=== PATIENT | female | born 1945 | race Caucasian/White ===

== ENCOUNTER → 2018-07-10 | Outpatient (CLI) | payer OTHER ==
[~2018-07-10] MED LIST: ACET325T21 PO; ALBU18HF INH; ASPI-621 PO; ASPI325T17 PO; ATOR40TA78 PO; CEFD300C37 PO; FENO54TA17 PO; FLUT1DIS3 INH; FLUT1DIS5 IH; GABA600T2 PO; GLIP5TAB10 PO; HYDR-3237 PO; IPRA3AMP30 INH; ISOS30TA8 PO; LISI-167 PO; LISI5TAB7 PO; METF10002 PO; METO25TA35 PO; NAPR-856 PO; OMEP-110 PO; OXYC1TAB7 PO; REGADENOSON 0.4 MG/5 ML SYRINGE ONE; SERT50TA5 PO
== END | disposition home or self-care (01) ==
LOC: CFH 11:52
PROVIDERS: ATTEND Family Medicine
DX: I34.0 Nonrheumatic mitral (valve) insufficiency (principal); E78.5 Hyperlipidemia, unspecified; E11.9 Type 2 diabetes mellitus without complications; I63.9 Cerebral infarction, unspecified; Z87.891 Personal history of nicotine dependence
CPT/HCPCS: 78452; 93017; 93306; A9502; J2785

== ENCOUNTER 2018-10-01 10:59 | Emergency (ER) | payer OTHER ==
[~2018-10-01] VITALS: Ht 170.2 cm; Wt 97.5 kg
[~2018-10-01 10:59] MED LIST changes: -ASPI-621 PO; +ASPI81TA45 PO; -REGADENOSON 0.4 MG/5 ML SYRINGE ONE
[2018-10-01] MEDS ORDERED: ACETAMINOPHEN 500 MG TABLET PO ONE (12:00)
[2018-10-01] MEDS ORDERED: ALBUTEROL/IPRATROPIUM 2.5MG/0.5MG, 3 ML NPPB SCH (12:00)
[2018-10-01 12:13] LABS: BASOPHILS # (AUTO) 0.01 x10^3/uL (0-0.1); BASOPHILS % (AUTO) 0 % (0-1); EOSINOPHILS # (AUTO) 0.11 x10^3/uL (0-0.4); EOSINOPHILS % (AUTO) 1 % (1-7); LYMPHOCYTES # (AUTO) 1.03 x10^3/uL (1-3.4); LYMPHOCYTES % (AUTO) 10 % (22-44); MD NO; MEAN CORPUSCULAR HGB CONC 31.7 g/dL (32.4-35.8); MEAN CORPUSCULAR VOLUME 79.1 fL (80-100); MEAN PLATELET VOLUME 9.9 fL (7.4-10.4); MONOCYTES # (AUTO) 0.75 x10^3/uL (0.2-0.8); MONOCYTES % (AUTO) 7 % (2-9); NEUTROPHILS # (AUTO) 8.92 x10^3/uL (1.8-6.8); NEUTROPHILS % (AUTO) 82 % (42-75); PLATELET COUNT 236 x10^3/uL (130-400); RED BLOOD COUNT 5.11 x10^6/uL (3.82-5.3); RED CELL DISTRIBUTION WIDTH 15.3 % (9.6-15.2)
[2018-10-01 12:22] LABS: ANION GAP 7 mmol/L (5-15); CALCIUM 8.9 mg/dL (8.5-10.1); CHLORIDE 98 mmol/L (98-107); CREATININE 1.11 mg/dL (0.55-1.02)
[2018-10-01] MEDS ORDERED: ALBUTEROL/IPRATROPIUM 2.5MG/0.5MG, 3 ML ONE ×2 (12:24→12:44)
[2018-10-01 12:54] LABS: RAPID INFLUENZA A Negative (Negative); RAPID INFLUENZA B Negative (Negative)
[2018-10-01] MEDS ORDERED: ACETAMINOPHEN 500 MG TABLET ONE (13:19)
[2018-10-01] MEDS ORDERED: LISI-170 PO (13:26)
[2018-10-01] MEDS ORDERED: INSU200I4 SQ (13:26)
[2018-10-01 13:28] VITALS: BP 142/80
== END 2018-10-01 13:59 | disposition home or self-care (01) ==
LOC: ED 12:47
DX: J18.1 Lobar pneumonia, unspecified organism (principal); J44.1 Chronic obstructive pulmonary disease with (acute) exacerbation; I11.9 Hypertensive heart disease without heart failure; E11.9 Type 2 diabetes mellitus without complications; I25.10 Atherosclerotic heart disease of native coronary artery without angina pectoris; Z87.891 Personal history of nicotine dependence
CPT/HCPCS: 36415; 71045; 80048; 82040; 83605; 85025; 87400; 93005; 94640; 99284; J7620

== ENCOUNTER 2018-12-25 10:50 | Inpatient (IN) | payer OTHER ==
[~2018-12-25] VITALS: Ht 170.2 cm; Wt 95.6 kg
[~2018-12-25 10:50] MED LIST changes: -GABA600T2 PO; +GABA600T7 PO; +INSU200I4 SQ; +LISI-170 PO; +SERT50TA28 PO; -SERT50TA5 PO
[2018-12-25] MEDS ORDERED: ALBUTEROL/IPRATROPIUM 2.5MG/0.5MG, 3 ML ONE ×2 (11:23→14:06)
[2018-12-25] MEDS ORDERED: ASPIRIN 81 MG TABLET CHEW PO ONE (11:30)
[2018-12-25] MEDS ORDERED: AZITHROMYCIN 500 MG in SODIUM CHLORIDE 0.9% 250 ML IVPB ONE (11:30)
[2018-12-25] MEDS ORDERED: ALBUTEROL/IPRATROPIUM 2.5MG/0.5MG, 3 ML NPPB SCH (11:30)
[2018-12-25] MEDS ORDERED: ASPIRIN 81 MG TABLET CHEW ONE (11:33)
[2018-12-25 11:37] LABS: BASOPHILS # (AUTO) 0.17 x10^3/uL (0-0.1); BASOPHILS % (AUTO) 2 % (0-1); EOSINOPHILS # (AUTO) 0.47 x10^3/uL (0-0.4); EOSINOPHILS % (AUTO) 5 % (1-7); LYMPHOCYTES # (AUTO) 2.34 x10^3/uL (1-3.4); LYMPHOCYTES % (AUTO) 23 % (22-44); MD NO; MEAN CORPUSCULAR HEMOGLOBIN 25.7 pg (27.0-34.8); MEAN CORPUSCULAR HGB CONC 32.1 g/dL (32.4-35.8); MEAN CORPUSCULAR VOLUME 80.2 fL (80-100); MONOCYTES # (AUTO) 0.63 x10^3/uL (0.2-0.8); MONOCYTES % (AUTO) 6 % (2-9); NEUTROPHILS # (AUTO) 6.69 x10^3/uL (1.8-6.8); NEUTROPHILS % (AUTO) 65 % (42-75); PLATELET COUNT 270 x10^3/uL (130-400); RED BLOOD COUNT 4.31 x10^6/uL (3.82-5.3)
--- NOTE | 2018-12-25 11:39 | NUR ---
spoke with md regarding abx order with no culture order. advised to start abx and no cultures needed.
[2018-12-25 11:49] LABS: ALBUMIN 3.6 g/dL (3.4-5.0); ANION GAP 5 mmol/L (5-15); CALCIUM 9.4 mg/dL (8.5-10.1); CHLORIDE 105 mmol/L (98-107); CREATININE 1.01 mg/dL (0.55-1.02)
[2018-12-25 11:53] LABS: TROPONIN I < 0.015 ng/mL (0.000-0.045)
--- NOTE | 2018-12-25 13:58 | NUR ---
pt ambulated per dr order. pt ambulating with her home o2 set to setting 3. pt ambulated 30 feet and began to speak in 1-2 word sentences. md made aware. plan is to admit pt at this time. pt and family agree with plan of care.
[2018-12-25] MEDS ORDERED: CEFTRIAXONE PMX 1GM/50ML 50 ML IV ONE (14:00)
[2018-12-25] MEDS ORDERED: CEFTRIAXONE PMX 1GM/50ML 50 ML ONE (14:23)
--- NOTE | 2018-12-25 16:39 | NUR ---
PT UP TO BATHROOM ON HER O2 CONCENTRATION MACHINE. MACHINE SET AT 5
--- NOTE | 2018-12-25 16:43 | NUR ---
PT UP TO BATHROOM ON CONCENTRATION MACHINE WHICH IS SET A 5. UPON RETURNING TO ROOMPTS O2 SAT AT 69%
[2018-12-25] MEDS ORDERED: CEFTRIAXONE PMX 1GM/50ML 50 ML IV SCH (17:00)
[2018-12-25] MEDS ORDERED: ALBUTEROL SULFATE 2.5 MG/3 ML NPPB PRN (17:00)
[2018-12-25] MEDS ORDERED: GUAIFENESIN/DM 200-20MG, 10ML UDC PO PRN (17:00)
[2018-12-25] MEDS ORDERED: GABAPENTIN 300 MG CAPSULE ONE (17:40)
[2018-12-25] MEDS ORDERED: HEPARIN 5,000 UNITS/ML, 1ML ONE (17:40)
[2018-12-25] MEDS: HEPARIN 5,000 UNITS/ML, 1ML SQ SCH (17:45)
[2018-12-25] MEDS: GABAPENTIN 300 MG CAPSULE PO SCH ×3 (17:45→23:32)
[2018-12-25] MEDS ORDERED: FENO54TA17 PO (18:18)
[2018-12-25] MEDS: ALBUTEROL/IPRATROPIUM 2.5MG/0.5MG, 3 ML NPPB SCH ×2 (19:00→23:00)
[2018-12-25] MEDS: ALBUTEROL SULFATE 2.5 MG/3 ML HHN SCH (21:00)
[2018-12-25] MEDS ORDERED: PLEASE ENTER ALLERGIES MC SCH (21:00)
[2018-12-25 23:29] VITALS: BP 158/84
[2018-12-25] MEDS: INSULIN GLARGINE 100 UNITS/ML, PEN SQ-INSULIN SCH (23:31)
[2018-12-25] MEDS: metFORMIN 500 MG TABLET PO SCH (23:32)
[2018-12-25] MEDS: MONTELUKAST 10 MG TABLET PO SCH (23:32)
[2018-12-25] MEDS: DOXYCYCLINE 100MG CAP PO SCH (23:32)
[2018-12-25] MEDS: OMEPRAZOLE 20 MG CAPSULE.DR PO SCH (23:32)
[2018-12-25] MEDS: METOPROLOL TARTRATE 25 MG TABLET PO SCH (23:32)
[2018-12-25] MEDS: SODIUM CHLORIDE FLUSH 10ML SYR IVF SCH (23:35)
[2018-12-26] MEDS: HEPARIN 5,000 UNITS/ML, 1ML SQ SCH ×3 (01:04→17:10)
[2018-12-26 01:06] LABS: RAPID INFLUENZA A Negative (Negative); RAPID INFLUENZA B Negative (Negative)
[2018-12-26 01:33] VITALS: BP 160/84
[2018-12-26] MEDS: ALBUTEROL/IPRATROPIUM 2.5MG/0.5MG, 3 ML NPPB SCH ×5 (02:27→20:00)
[2018-12-26] MEDS: ALBUTEROL SULFATE 2.5 MG/3 ML HHN SCH (02:29)
[2018-12-26] MEDS: BUDESONIDE 0.5 MG/2 ML INHA HHN SCH ×2 (07:15→21:00)
[2018-12-26 07:24] LABS: BASOPHILS # (AUTO) 0.07 x10^3/uL (0-0.1); BASOPHILS % (AUTO) 1 % (0-1); EOSINOPHILS # (AUTO) 0.02 x10^3/uL (0-0.4); EOSINOPHILS % (AUTO) 0 % (1-7); LYMPHOCYTES # (AUTO) 2.09 x10^3/uL (1-3.4); LYMPHOCYTES % (AUTO) 20 % (22-44); MD NO; MEAN CORPUSCULAR HEMOGLOBIN 24.8 pg (27.0-34.8); MEAN CORPUSCULAR HGB CONC 31.2 g/dL (32.4-35.8); MEAN CORPUSCULAR VOLUME 79.5 fL (80-100); MEAN PLATELET VOLUME 9.3 fL (7.4-10.4); MONOCYTES # (AUTO) 0.59 x10^3/uL (0.2-0.8); MONOCYTES % (AUTO) 6 % (2-9); NEUTROPHILS # (AUTO) 7.48 x10^3/uL (1.8-6.8); NEUTROPHILS % (AUTO) 73 % (42-75); PLATELET COUNT 244 x10^3/uL (130-400); RED BLOOD COUNT 4.46 x10^6/uL (3.82-5.3); RED CELL DISTRIBUTION WIDTH 16.1 % (9.6-15.2)
[2018-12-26 07:35] LABS: CHLORIDE 105 mmol/L (98-107)
[2018-12-26 07:36] VITALS: BP 158/79
[2018-12-26 07:50] LABS: ANION GAP 6 mmol/L (5-15); CALCIUM 9.5 mg/dL (8.5-10.1); CREATININE 0.98 mg/dL (0.55-1.02); THYROID STIMULATING HORMONE 0.283 mIU/L (0.358-3.740)
[2018-12-26] MEDS ORDERED: GABAPENTIN 300 MG CAPSULE PO SCH (09:00)
[2018-12-26] MEDS: DOXYCYCLINE 100MG CAP PO SCH ×2 (09:05→20:33)
[2018-12-26] MEDS: LISINOPRIL 20 MG TABLET PO SCH (09:05)
[2018-12-26] MEDS: metFORMIN 500 MG TABLET PO SCH ×2 (09:05→20:33)
[2018-12-26] MEDS: SERTRALINE 50MG TABLET PO SCH (09:05)
[2018-12-26] MEDS: ISOSORBIDE MONONITRATE ER 30 MG TABLET PO SCH (09:06)
[2018-12-26] MEDS: FENOFIBRATE 54 MG TABLET PO SCH (09:06)
[2018-12-26] MEDS: OMEPRAZOLE 20 MG CAPSULE.DR PO SCH ×2 (09:06→20:33)
[2018-12-26] MEDS: METOPROLOL TARTRATE 25 MG TABLET PO SCH ×2 (09:06→20:33)
[2018-12-26] MEDS: GABAPENTIN 300 MG CAPSULE PO SCH ×3 (09:06→20:33)
[2018-12-26] MEDS: ASPIRIN 81 MG TABLET EC PO SCH (09:06)
[2018-12-26] MEDS: SODIUM CHLORIDE FLUSH 10ML SYR IVF SCH ×2 (09:07→20:32)
[2018-12-26] MEDS ORDERED: CEFTRIAXONE PMX 1GM/50ML 50 ML IV SCH (13:00)
[2018-12-26 14:10] VITALS: BP 152/74
[2018-12-26] MEDS: predniSONE 50MG TABLET PO SCH (14:48)
[2018-12-26 20:29] VITALS: BP 144/78
[2018-12-26] MEDS: INSULIN GLARGINE 100 UNITS/ML, PEN SQ-INSULIN SCH (20:32)
[2018-12-26] MEDS: MONTELUKAST 10 MG TABLET PO SCH (20:33)
[2018-12-27] MEDS: HEPARIN 5,000 UNITS/ML, 1ML SQ SCH ×2 (01:37→09:39)
[2018-12-27 02:58] VITALS: BP 179/89
[2018-12-27] MEDS: BUDESONIDE 0.5 MG/2 ML INHA HHN SCH (07:05)
[2018-12-27] MEDS: ALBUTEROL/IPRATROPIUM 2.5MG/0.5MG, 3 ML NPPB SCH ×2 (07:05→10:25)
[2018-12-27 08:00] VITALS: BP 165/89
[2018-12-27] MEDS: METOPROLOL TARTRATE 25 MG TABLET PO SCH (09:00)
[2018-12-27] MEDS: SODIUM CHLORIDE FLUSH 10ML SYR IVF SCH (09:00)
[2018-12-27] MEDS: ASPIRIN 81 MG TABLET EC PO SCH (09:39)
[2018-12-27] MEDS: metFORMIN 500 MG TABLET PO SCH (09:39)
[2018-12-27] MEDS: predniSONE 50MG TABLET PO SCH (09:39)
[2018-12-27] MEDS: DOXYCYCLINE 100MG CAP PO SCH (09:39)
[2018-12-27] MEDS: FENOFIBRATE 54 MG TABLET PO SCH (09:39)
[2018-12-27] MEDS: OMEPRAZOLE 20 MG CAPSULE.DR PO SCH (09:39)
[2018-12-27] MEDS: GABAPENTIN 300 MG CAPSULE PO SCH (09:39)
[2018-12-27] MEDS: SERTRALINE 50MG TABLET PO SCH (09:39)
[2018-12-27] MEDS: LISINOPRIL 20 MG TABLET PO SCH (09:40)
[2018-12-27] MEDS: ISOSORBIDE MONONITRATE ER 30 MG TABLET PO SCH (09:40)
[2018-12-27] MEDS ORDERED: MONT10TA9 PO (10:07)
[2018-12-27] MEDS ORDERED: DOXY100C2 PO (10:07)
[2018-12-27] MEDS ORDERED: PRED50TA PO (10:07)
== END 2018-12-27 11:30 | disposition home or self-care (01) | DRG 190 ==
LOC: ED 11:24 → EDIP 13:57 → 4EST 20:23 → DCLOUNGE 12-27 11:15
PROVIDERS: ADMIT Internal Medicine; ATTEND Internal Medicine
DX: J44.1 Chronic obstructive pulmonary disease with (acute) exacerbation (principal); J18.1 Lobar pneumonia, unspecified organism; J44.0 Chronic obstructive pulmonary disease with (acute) lower respiratory infection; E11.42 Type 2 diabetes mellitus with diabetic polyneuropathy; G47.33 Obstructive sleep apnea (adult) (pediatric); I10 Essential (primary) hypertension; I25.10 Atherosclerotic heart disease of native coronary artery without angina pectoris; E11.51 Type 2 diabetes mellitus with diabetic peripheral angiopathy without gangrene; I34.1 Nonrheumatic mitral (valve) prolapse; D64.9 Anemia, unspecified; E66.9 Obesity, unspecified; E03.9 Hypothyroidism, unspecified; Z99.81 Dependence on supplemental oxygen; Z90.710 Acquired absence of both cervix and uterus; Z90.49 Acquired absence of other specified parts of digestive tract; Z88.8 Allergy status to other drugs, medicaments and biological substances; Z87.891 Personal history of nicotine dependence; Z86.711 Personal history of pulmonary embolism; Z86.73 Personal history of transient ischemic attack (TIA), and cerebral infarction without residual deficits; Z80.0 Family history of malignant neoplasm of digestive organs; Z68.33 Body mass index [BMI] 33.0-33.9, adult
CPT/HCPCS: 36415; 71045; 80048; 82040; 82962; 83880; 84443; 84484; 85025; 87040; 87400; 93005; 94640; G0378; J0456; J0696; J1644; J7620; J7626; J1815; J7050; J7512